=== PATIENT | male | born 1960 | race Caucasian/White ===

== ENCOUNTER 2021-07-25 10:53 | Inpatient (IN) ==
[2021-07-25] MEDS ORDERED: Naloxone 0.4 MG/ML INJ IVP PRN ×2 (11:15→19:49)
[2021-07-25] MEDS ORDERED: Ondansetron ODT 4 MG TAB.RAPDIS SL PRN ×2 (11:15→19:49)
[2021-07-25] MEDS ORDERED: Mag Hydrox/Al Hydrox/Simeth 30 ML UDC PO PRN ×2 (11:15→19:49)
[2021-07-25] MEDS ORDERED: Melatonin 3 MG TABLET PO PRN (11:15)
[2021-07-25 11:51] LABS: Hemoglobin 8.5 g/dL (12.9-16.9); Nucleated Red Blood Cells 0.1 /100 WBC (0)
[2021-07-25 11:52] LABS: Hematocrit 27.7 % (37.5-50.1); Mean Corpuscular HGB Conc 30.7 g/dL (31.6-35.5); Mean Corpuscular Hemoglobin 21.1 pg (28.0-33.3); Mean Corpuscular Volume 68.9 fL (83.0-100.0); Mean Platelet Volume 9.2 fL (9.4-12.4); Platelet Count 365 K/mcL (140-400); Red Blood Count 4.02 M/mcL (4.19-5.50); Red Cell Distribution Width 19.9 % (11.5-14.5); White Blood Count 28.1 K/mcL (4.3-11.1)
[2021-07-25 12:09] LABS: Alkaline Phosphatase 358 Units/L (34-104); Aspartate Amino Transferase 32 Units/L (13-39); BUN/Creatinine Ratio 19 (6-26); Bilirubin,Total 0.4 mg/dL (0.3-1.0); Blood Urea Nitrogen 40 mg/dL (6-20); Calcium 9.1 mg/dL (8.6-10.3); Carbon Dioxide 22 mEq/L (23-29); Chloride 104 mEq/L (98-107); Glucose 121 mg/dL (70-105); INR 1.3; Osmolality,Calculated 293 (280-300); Potassium 4.2 mEq/L (3.5-5.1); Prothrombin Time 14.9 Seconds (9.4-12.1); Sodium 136 mEq/L (136-145); eGFR For African Americans 40 (> 60); eGFR For Non-African Americans 33 (> 60)
[2021-07-25 12:18] LABS: Eosinophils # 0.3 K/mcL (0.0-0.6); Lymphocytes # 2.3 K/mcL (0.6-4.6); Neutrophils # 22.8 K/mcL (1.6-8.9)
[2021-07-25 12:21] LABS: Anisocytosis 1+ (Not Present); Microcytosis Present (Not Present); Platelet Estimate Normal (Normal); Polychromasia 1+ (Not Present)
[2021-07-25 12:34] LABS: Alanine Aminotransferase 38 Units/L (7-52); Albumin 3.2 g/dL (3.5-5.7); Albumin/Globulin Ratio 0.8 (1.1-2.2); C-Reactive Protein > 300 mg/L (Less than 10); Globulin 3.9 g/dL (2.4-3.5); Total Protein 7.1 g/dL (6.4-8.9)
[2021-07-25] MEDS ORDERED: 0.9 % Sodium Chloride 1,000 ML IVC ONE ×2 (12:51→19:49)
[2021-07-25] MEDS ORDERED: Dextrose Gel 15 GM/37.5 ML TUBE PO PRN ×4 (12:51→19:49)
[2021-07-25] MEDS ORDERED: *HR* Dextrose 50 % in Water (Syg) 50 ML SYRINGE IVP PRN ×2 (12:51→19:49)
[2021-07-25] MEDS ORDERED: D5% in Water 1,000 ML IVC PRN ×2 (12:51→19:49)
[2021-07-25] MEDS ORDERED: Vancomycin 1,250 MG/262.5 ML IV.SOLN IVPB SCH (14:00)
[2021-07-25] MEDS ORDERED: Piperacillin/Tazobactam 3.375 GM in 0.9 % Sodium Chloride Mini Bag 100 ML IVPB SCH (14:00)
[2021-07-25] MEDS ORDERED: *HR* FentaNYL (PF) 100 MCG/2 ML VIAL IVP PRN ×2 (16:11→19:49)
[2021-07-25] MEDS ORDERED: Insulin LISPRO 300 UNITS/3 ML VIAL SUBQ SCH ×2 (16:30→21:00)
[2021-07-25] MEDS ORDERED: *HR* Vasopressin 20 UNIT/ML VIAL ONE (17:32)
[2021-07-25] MEDS: 0.9 % Sodium Chloride 1,000 ML IVC SCH ×2 (17:57→18:46)
[2021-07-25] MEDS ORDERED: *HR* Heparin 5,000 UNIT/ML VIAL SQ SCH (18:00)
[2021-07-25] MEDS ORDERED: 0.9 % Sodium Chloride 1,000 ML IVC SCH (19:49)
[2021-07-25] MEDS: Insulin LISPRO 300 UNITS/3 ML VIAL SUBQ SCH (23:00)
[2021-07-25] MEDS: Piperacillin/Tazobactam 3.375 GM in 0.9 % Sodium Chloride Mini Bag 100 ML IVPB SCH (23:05)
[2021-07-26 02:56] LABS: Hematocrit 24.8 % (37.5-50.1); Hemoglobin 7.5 g/dL (12.9-16.9); Lymphocytes # 0.9 K/mcL (0.6-4.6); Mean Corpuscular HGB Conc 30.2 g/dL (31.6-35.5); Mean Corpuscular Hemoglobin 21.1 pg (28.0-33.3); Mean Corpuscular Volume 69.9 fL (83.0-100.0); Mean Platelet Volume 9.5 fL (9.4-12.4); Platelet Count 377 K/mcL (140-400); Red Blood Count 3.55 M/mcL (4.19-5.50); White Blood Count 21.9 K/mcL (4.3-11.1)
[2021-07-26 03:21] LABS: Calcium 8.4 mg/dL (8.6-10.3); Potassium 4.6 mEq/L (3.5-5.1)
[2021-07-26 03:37] LABS: Basophils # 0.4 K/mcL (0.0-0.2); Hypochromasia Present (Not Present); Monocytes # 0.4 K/mcL (0.0-1.3); Neutrophils # 20.2 K/mcL (1.6-8.9); Platelet Estimate Normal (Normal)
[2021-07-26] MEDS: *HR* Heparin 5,000 UNIT/ML VIAL SQ SCH ×2 (05:35→17:05)
[2021-07-26] MEDS: Piperacillin/Tazobactam 3.375 GM in 0.9 % Sodium Chloride Mini Bag 100 ML IVPB SCH ×3 (05:41→22:43)
[2021-07-26] MEDS: Insulin LISPRO 300 UNITS/3 ML VIAL SUBQ SCH ×4 (07:27→20:36)
[2021-07-26] MEDS: Nicotine 21 MG PATCH.TD24 TD SCH (10:21)
[2021-07-26] MEDS: Sucralfate 1 GM TABLET PO SCH ×3 (13:02→20:35)
[2021-07-26] MEDS: Vancomycin 1,250 MG/262.5 ML IV.SOLN IVPB SCH (13:03)
[2021-07-26] MEDS ORDERED: Clindamycin 600 MG/50 ML 600 MG/50 ML IV.SOLN IVPB SCH (18:34)
[2021-07-26] MEDS: Melatonin 3 MG TABLET PO PRN (20:35)
[2021-07-27] MEDS: Piperacillin/Tazobactam 3.375 GM in 0.9 % Sodium Chloride Mini Bag 100 ML IVPB SCH ×3 (05:21→22:04)
[2021-07-27] MEDS: *HR* Heparin 5,000 UNIT/ML VIAL SQ SCH ×2 (05:21→17:41)
[2021-07-27 09:06] LABS: Hematocrit 26.5 % (37.5-50.1); Hemoglobin 7.7 g/dL (12.9-16.9); Mean Corpuscular HGB Conc 29.1 g/dL (31.6-35.5); Mean Corpuscular Hemoglobin 20.5 pg (28.0-33.3); Mean Corpuscular Volume 70.7 fL (83.0-100.0); Mean Platelet Volume 9.3 fL (9.4-12.4); Platelet Count 362 K/mcL (140-400); Red Blood Count 3.75 M/mcL (4.19-5.50); Red Cell Distribution Width 20.1 % (11.5-14.5); White Blood Count 21.1 K/mcL (4.3-11.1)
[2021-07-27] MEDS: Sucralfate 1 GM TABLET PO SCH ×4 (09:07→19:58)
[2021-07-27] MEDS: Nicotine 21 MG PATCH.TD24 TD SCH (09:07)
[2021-07-27 09:24] LABS: BUN/Creatinine Ratio 22 (6-26); Blood Urea Nitrogen 30 mg/dL (6-20); Calcium 8.6 mg/dL (8.6-10.3); Carbon Dioxide 23 mEq/L (23-29); Chloride 105 mEq/L (98-107); Glucose 177 mg/dL (70-105); Osmolality,Calculated 295 (280-300); Potassium 4.3 mEq/L (3.5-5.1); Sodium 137 mEq/L (136-145); eGFR For African Americans > 60 (> 60); eGFR For Non-African Americans 54 (> 60)
[2021-07-27 09:28] LABS: Eosinophils # 0.2 K/mcL (0.0-0.6); Lymphocytes # 2.3 K/mcL (0.6-4.6); Monocytes # 0.8 K/mcL (0.0-1.3); Neutrophils # 16.7 K/mcL (1.6-8.9)
[2021-07-27 09:29] LABS: Platelet Estimate Normal (Normal)
[2021-07-27] MEDS: Insulin LISPRO 300 UNITS/3 ML VIAL SUBQ SCH ×4 (11:40→21:54)
[2021-07-27] MEDS: atenoloL 25 MG TABLET PO SCH (14:56)
[2021-07-27] MEDS ORDERED: Vancomycin 1,500 MG/265 ML IV.SOLN IVPB SCH ×2 (15:00→21:00)
[2021-07-27] MEDS: Melatonin 3 MG TABLET PO PRN (19:59)
[2021-07-27] MEDS ORDERED: *HR* HYDROmorphone (PF) 1 MG/ML SYRINGE IVP ONE (23:16)
[2021-07-28] MEDS ORDERED: Ketorolac 30 MG/ML VIAL IVP ONE ×2 (03:53→21:31)
[2021-07-28 05:50] LABS: Red Cell Distribution Width 19.9 % (11.5-14.5)
[2021-07-28 05:52] LABS: Hematocrit 26.4 % (37.5-50.1); Hemoglobin 7.9 g/dL (12.9-16.9); Mean Corpuscular HGB Conc 29.9 g/dL (31.6-35.5); Mean Corpuscular Hemoglobin 21.3 pg (28.0-33.3); Mean Corpuscular Volume 71.2 fL (83.0-100.0); Mean Platelet Volume 9.2 fL (9.4-12.4); Platelet Count 388 K/mcL (140-400); Red Blood Count 3.71 M/mcL (4.19-5.50); White Blood Count 16.6 K/mcL (4.3-11.1)
[2021-07-28 06:12] LABS: BUN/Creatinine Ratio 20 (6-26); Blood Urea Nitrogen 27 mg/dL (6-20); Calcium 8.8 mg/dL (8.6-10.3); Carbon Dioxide 25 mEq/L (23-29); Chloride 100 mEq/L (98-107); Glucose 147 mg/dL (70-105); Osmolality,Calculated 284 (280-300); Potassium 4.4 mEq/L (3.5-5.1); Sodium 133 mEq/L (136-145); eGFR For African Americans > 60 (> 60); eGFR For Non-African Americans 56 (> 60)
[2021-07-28] MEDS: Piperacillin/Tazobactam 3.375 GM in 0.9 % Sodium Chloride Mini Bag 100 ML IVPB SCH (06:27)
[2021-07-28] MEDS: *HR* Heparin 5,000 UNIT/ML VIAL SQ SCH ×2 (06:27→17:03)
[2021-07-28 06:47] LABS: Eosinophils # 0.2 K/mcL (0.0-0.6); Lymphocytes # 4.3 K/mcL (0.6-4.6); Monocytes # 0.5 K/mcL (0.0-1.3); Neutrophils # 11.6 K/mcL (1.6-8.9); Platelet Estimate Normal (Normal); Reactive Lymphocytes Present (Not Present)
[2021-07-28] MEDS: Vancomycin 1,250 MG/262.5 ML IV.SOLN IVPB SCH (07:34)
[2021-07-28] MEDS: Sucralfate 1 GM TABLET PO SCH ×4 (08:19→21:29)
[2021-07-28] MEDS: atenoloL 25 MG TABLET PO SCH (08:19)
[2021-07-28] MEDS: Insulin LISPRO 300 UNITS/3 ML VIAL SUBQ SCH ×4 (08:23→21:44)
[2021-07-28] MEDS: Nicotine 21 MG PATCH.TD24 TD SCH (08:24)
[2021-07-28] MEDS ORDERED: Acetaminophen/Butalbital/CaffeineTABLET PO ONE (14:36)
[2021-07-28] MEDS ORDERED: ceFAZolin 1,000 MG in 0.9 % Sodium Chloride 10 ML IVP SCH (16:00)
[2021-07-28] MEDS ORDERED: CeFAZolin 2,000 MG/120 ML BAG IVPB SCH ×2 (16:00→17:00)
[2021-07-28] MEDS: metroNIDAZOLE 500 MG TABLET PO SCH ×2 (18:40→21:43)
[2021-07-28] MEDS: tiZANidine 4 MG TABLET PO PRN (18:40)
[2021-07-28] MEDS: Melatonin 3 MG TABLET PO PRN (21:29)
[2021-07-28] MEDS: 0.9 % Sodium Chloride 1,000 ML IVC SCH (21:44)
[2021-07-29] MEDS: tiZANidine 4 MG TABLET PO PRN ×2 (01:47→20:25)
[2021-07-29] MEDS: CeFAZolin 2,000 MG/120 ML BAG IVPB SCH ×3 (02:03→17:06)
[2021-07-29 02:12] LABS: Basophils # 0.1 K/mcL (0.0-0.2); Basophils % 0.6 %; Eosinophils # 0.3 K/mcL (0.0-0.6); Eosinophils % 1.6 %; Hematocrit 26.7 % (37.5-50.1); Hemoglobin 7.9 g/dL (12.9-16.9); Immature Granulocytes % 10.6 % (0-4); Lymphocytes # 2.6 K/mcL (0.6-4.6); Lymphocytes % 15.4 %; Mean Corpuscular HGB Conc 29.6 g/dL (31.6-35.5); Mean Corpuscular Hemoglobin 20.7 pg (28.0-33.3); Mean Corpuscular Volume 70.1 fL (83.0-100.0); Mean Platelet Volume 8.8 fL (9.4-12.4); Monocytes # 1.6 K/mcL (0.0-1.3); Monocytes % 9.2 %; Neutrophils # 10.7 K/mcL (1.6-8.9); Platelet Count 394 K/mcL (140-400); Red Blood Count 3.81 M/mcL (4.19-5.50); Red Cell Distribution Width 19.3 % (11.5-14.5); Segmented Neutrophils % 62.6 %; White Blood Count 17.1 K/mcL (4.3-11.1)
[2021-07-29 02:18] LABS: Platelet Estimate Normal (Normal)
[2021-07-29 02:27] LABS: BUN/Creatinine Ratio 20 (6-26); Blood Urea Nitrogen 23 mg/dL (6-20); Calcium 8.7 mg/dL (8.6-10.3); Carbon Dioxide 24 mEq/L (23-29); Chloride 102 mEq/L (98-107); Glucose 108 mg/dL (70-105); Osmolality,Calculated 282 (280-300); Potassium 4.4 mEq/L (3.5-5.1); Sodium 134 mEq/L (136-145); eGFR For African Americans > 60 (> 60); eGFR For Non-African Americans > 60 (> 60)
[2021-07-29] MEDS: *HR* Heparin 5,000 UNIT/ML VIAL SQ SCH ×2 (05:48→17:07)
[2021-07-29] MEDS: Insulin LISPRO 300 UNITS/3 ML VIAL SUBQ SCH ×4 (09:17→21:56)
[2021-07-29] MEDS: Sucralfate 1 GM TABLET PO SCH ×4 (09:21→20:08)
[2021-07-29] MEDS: metroNIDAZOLE 500 MG TABLET PO SCH ×3 (09:21→20:07)
[2021-07-29] MEDS: atenoloL 25 MG TABLET PO SCH (09:21)
[2021-07-29] MEDS: Nicotine 21 MG PATCH.TD24 TD SCH (09:22)
[2021-07-29] MEDS: Acetaminophen/Butalbital/CaffeineTABLET PO PRN (10:05)
[2021-07-29] MEDS ORDERED: Gadolinium Contrast Agent (WT Based) IV PRN (11:21)
[2021-07-29] MEDS ORDERED: *HR* LORazepam 2 MG/ML VIAL IVP ONE (11:51)
[2021-07-29] MEDS: 0.9 % Sodium Chloride 1,000 ML IVC SCH (13:26)
[2021-07-30] MEDS: CeFAZolin 2,000 MG/120 ML BAG IVPB SCH ×3 (01:15→17:12)
[2021-07-30] MEDS: 0.9 % Sodium Chloride 1,000 ML IVC SCH ×2 (03:59→17:59)
[2021-07-30 04:34] LABS: Mean Corpuscular Volume 71.1 fL (83.0-100.0)
[2021-07-30 04:36] LABS: Basophils # 0.1 K/mcL (0.0-0.2); Basophils % 0.4 %; Eosinophils # 0.3 K/mcL (0.0-0.6); Eosinophils % 1.6 %; Hematocrit 27.1 % (37.5-50.1); Immature Granulocytes % 9.2 % (0-4); Lymphocytes # 2.1 K/mcL (0.6-4.6); Lymphocytes % 11.8 %; Mean Corpuscular HGB Conc 29.5 g/dL (31.6-35.5); Monocytes # 1.7 K/mcL (0.0-1.3); Monocytes % 9.5 %; Neutrophils # 12.1 K/mcL (1.6-8.9); Platelet Count 398 K/mcL (140-400); Red Blood Count 3.81 M/mcL (4.19-5.50); Segmented Neutrophils % 67.5 %; White Blood Count 17.9 K/mcL (4.3-11.1)
[2021-07-30 04:52] LABS: Platelet Estimate Normal (Normal)
[2021-07-30 04:55] LABS: BUN/Creatinine Ratio 17 (6-26); Blood Urea Nitrogen 21 mg/dL (6-20); Calcium 8.7 mg/dL (8.6-10.3); Carbon Dioxide 25 mEq/L (23-29); Chloride 99 mEq/L (98-107); Glucose 100 mg/dL (70-105); Osmolality,Calculated 277 (280-300); Sodium 132 mEq/L (136-145); eGFR For African Americans > 60 (> 60); eGFR For Non-African Americans > 60 (> 60)
[2021-07-30] MEDS: *HR* Heparin 5,000 UNIT/ML VIAL SQ SCH ×2 (07:34→17:12)
[2021-07-30] MEDS: Acetaminophen/Butalbital/CaffeineTABLET PO PRN ×2 (07:49→14:06)
[2021-07-30] MEDS: Insulin LISPRO 300 UNITS/3 ML VIAL SUBQ SCH ×4 (07:50→21:32)
[2021-07-30] MEDS: Sucralfate 1 GM TABLET PO SCH ×4 (10:03→21:34)
[2021-07-30] MEDS: Nicotine 21 MG PATCH.TD24 TD SCH (10:03)
[2021-07-30] MEDS: metroNIDAZOLE 500 MG TABLET PO SCH ×3 (10:03→21:36)
[2021-07-30] MEDS: atenoloL 25 MG TABLET PO SCH (10:03)
[2021-07-30] MEDS: Melatonin 3 MG TABLET PO PRN (23:22)
[2021-07-31] MEDS: CeFAZolin 2,000 MG/120 ML BAG IVPB SCH ×3 (01:52→17:17)
[2021-07-31] MEDS: 0.9 % Sodium Chloride 1,000 ML IVC SCH (05:57)
[2021-07-31] MEDS: *HR* Heparin 5,000 UNIT/ML VIAL SQ SCH ×2 (05:57→17:21)
[2021-07-31] MEDS: tiZANidine 4 MG TABLET PO PRN (05:59)
[2021-07-31 08:29] LABS: Hematocrit 27.1 % (37.5-50.1); Hemoglobin 8.2 g/dL (12.9-16.9); Mean Corpuscular HGB Conc 30.3 g/dL (31.6-35.5); Mean Corpuscular Volume 69.5 fL (83.0-100.0); Mean Platelet Volume 8.7 fL (9.4-12.4); Platelet Count 443 K/mcL (140-400); White Blood Count 13.4 K/mcL (4.3-11.1)
[2021-07-31 08:48] LABS: BUN/Creatinine Ratio 15 (6-26); Blood Urea Nitrogen 15 mg/dL (6-20); Calcium 8.7 mg/dL (8.6-10.3); Carbon Dioxide 25 mEq/L (23-29); Chloride 102 mEq/L (98-107); Glucose 116 mg/dL (70-105); Osmolality,Calculated 278 (280-300); Potassium 4.2 mEq/L (3.5-5.1); Sodium 133 mEq/L (136-145); eGFR For African Americans > 60 (> 60); eGFR For Non-African Americans > 60 (> 60)
[2021-07-31] MEDS: Insulin LISPRO 300 UNITS/3 ML VIAL SUBQ SCH ×3 (09:03→17:07)
[2021-07-31] MEDS: Sucralfate 1 GM TABLET PO SCH ×4 (09:08→20:04)
[2021-07-31] MEDS: metroNIDAZOLE 500 MG TABLET PO SCH ×3 (09:08→20:04)
[2021-07-31] MEDS: atenoloL 25 MG TABLET PO SCH (09:08)
[2021-07-31] MEDS: Nicotine 21 MG PATCH.TD24 TD SCH ×2 (09:08→10:42)
[2021-07-31 09:13] LABS: Eosinophils # 0.5 K/mcL (0.0-0.6); Lymphocytes # 2.1 K/mcL (0.6-4.6); Monocytes # 0.8 K/mcL (0.0-1.3); Neutrophils # 9.3 K/mcL (1.6-8.9)
[2021-07-31 09:14] LABS: Anisocytosis 1+ (Not Present); Hypochromasia Present (Not Present); Microcytosis Present (Not Present)
[2021-07-31] MEDS: Acetaminophen/Butalbital/CaffeineTABLET PO PRN ×2 (13:09→22:29)
[2021-08-01] MEDS: Insulin LISPRO 300 UNITS/3 ML VIAL SUBQ SCH ×5 (00:55→20:33)
[2021-08-01] MEDS: CeFAZolin 2,000 MG/120 ML BAG IVPB SCH ×3 (02:50→18:34)
[2021-08-01 05:28] LABS: Basophils % 0.3 %; Eosinophils # 0.3 K/mcL (0.0-0.6); Eosinophils % 2.3 %; Hematocrit 24.8 % (37.5-50.1); Hemoglobin 7.3 g/dL (12.9-16.9); Immature Granulocytes % 5.9 % (0-4); Lymphocytes # 2.1 K/mcL (0.6-4.6); Lymphocytes % 17.2 %; Mean Corpuscular HGB Conc 29.4 g/dL (31.6-35.5); Mean Corpuscular Hemoglobin 20.8 pg (28.0-33.3); Mean Corpuscular Volume 70.7 fL (83.0-100.0); Mean Platelet Volume 8.9 fL (9.4-12.4); Monocytes # 1.5 K/mcL (0.0-1.3); Monocytes % 11.7 %; Platelet Count 424 K/mcL (140-400); Red Blood Count 3.51 M/mcL (4.19-5.50); Red Cell Distribution Width 19.2 % (11.5-14.5); Segmented Neutrophils % 62.6 %; White Blood Count 12.4 K/mcL (4.3-11.1)
[2021-08-01] MEDS: 0.9 % Sodium Chloride 1,000 ML IVC SCH ×2 (05:30→05:46)
[2021-08-01 05:32] LABS: Neutrophils # 7.8 K/mcL (1.6-8.9)
[2021-08-01] MEDS: *HR* Heparin 5,000 UNIT/ML VIAL SQ SCH ×2 (05:45→18:31)
[2021-08-01] MEDS: Acetaminophen/Butalbital/CaffeineTABLET PO PRN ×3 (05:45→18:31)
[2021-08-01 05:46] LABS: BUN/Creatinine Ratio 15 (6-26); Blood Urea Nitrogen 21 mg/dL (6-20); Calcium 8.8 mg/dL (8.6-10.3); Carbon Dioxide 24 mEq/L (23-29); Chloride 104 mEq/L (98-107); Glucose 126 mg/dL (70-105); Osmolality,Calculated 283 (280-300); Potassium 4.5 mEq/L (3.5-5.1); Sodium 134 mEq/L (136-145); eGFR For African Americans > 60 (> 60); eGFR For Non-African Americans 54 (> 60)
[2021-08-01 05:56] LABS: Anisocytosis 1+ (Not Present)
[2021-08-01] MEDS: metroNIDAZOLE 500 MG TABLET PO SCH ×3 (08:08→20:33)
[2021-08-01] MEDS: Sucralfate 1 GM TABLET PO SCH ×4 (08:08→20:33)
[2021-08-01] MEDS: atenoloL 25 MG TABLET PO SCH (08:08)
[2021-08-01] MEDS: Nicotine 21 MG PATCH.TD24 TD SCH (08:09)
[2021-08-02] MEDS: Acetaminophen/Butalbital/CaffeineTABLET PO PRN ×3 (00:59→15:42)
[2021-08-02] MEDS: CeFAZolin 2,000 MG/120 ML BAG IVPB SCH ×3 (03:30→18:44)
[2021-08-02] MEDS: *HR* Heparin 5,000 UNIT/ML VIAL SQ SCH ×2 (05:16→18:49)
[2021-08-02 07:03] LABS: Eosinophils % 2.5 %; Red Cell Distribution Width 19.3 % (11.5-14.5)
[2021-08-02 07:04] LABS: Basophils # 0.1 K/mcL (0.0-0.2); Basophils % 0.5 %; Eosinophils # 0.2 K/mcL (0.0-0.6); Hematocrit 26.9 % (37.5-50.1); Hemoglobin 7.9 g/dL (12.9-16.9); Immature Granulocytes % 4.4 % (0-4); Lymphocytes % 20.3 %; Mean Corpuscular HGB Conc 29.4 g/dL (31.6-35.5); Mean Corpuscular Hemoglobin 21.1 pg (28.0-33.3); Mean Corpuscular Volume 71.9 fL (83.0-100.0); Monocytes # 1.2 K/mcL (0.0-1.3); Monocytes % 12.6 %; Platelet Count 472 K/mcL (140-400); Red Blood Count 3.74 M/mcL (4.19-5.50); Segmented Neutrophils % 59.7 %; White Blood Count 9.6 K/mcL (4.3-11.1)
[2021-08-02 07:06] LABS: Neutrophils # 5.7 K/mcL (1.6-8.9)
[2021-08-02 07:47] LABS: BUN/Creatinine Ratio 14 (6-26); Blood Urea Nitrogen 16 mg/dL (6-20); Calcium 8.6 mg/dL (8.6-10.3); Carbon Dioxide 23 mEq/L (23-29); Chloride 102 mEq/L (98-107); Glucose 104 mg/dL (70-105); Osmolality,Calculated 275 (280-300); Potassium 4.1 mEq/L (3.5-5.1); Sodium 132 mEq/L (136-145); eGFR For African Americans > 60 (> 60); eGFR For Non-African Americans > 60 (> 60)
[2021-08-02] MEDS: Insulin LISPRO 300 UNITS/3 ML VIAL SUBQ SCH ×4 (09:27→20:28)
[2021-08-02] MEDS: Sucralfate 1 GM TABLET PO SCH ×4 (09:28→20:27)
[2021-08-02] MEDS: metroNIDAZOLE 500 MG TABLET PO SCH ×3 (09:28→20:27)
[2021-08-02] MEDS: atenoloL 25 MG TABLET PO SCH (09:28)
[2021-08-02] MEDS: Nicotine 21 MG PATCH.TD24 TD SCH (09:29)
[2021-08-02] MEDS: lisinopriL 10 MG TABLET PO SCH (18:48)
[2021-08-03] MEDS: CeFAZolin 2,000 MG/120 ML BAG IVPB SCH ×2 (01:40→10:32)
[2021-08-03] MEDS: tiZANidine 4 MG TABLET PO PRN (06:33)
[2021-08-03] MEDS: *HR* Heparin 5,000 UNIT/ML VIAL SQ SCH (06:33)
[2021-08-03] MEDS: metroNIDAZOLE 500 MG TABLET PO SCH (07:36)
[2021-08-03] MEDS: Sucralfate 1 GM TABLET PO SCH (07:36)
[2021-08-03] MEDS: atenoloL 25 MG TABLET PO SCH (07:36)
[2021-08-03] MEDS: Acetaminophen/Butalbital/CaffeineTABLET PO PRN ×2 (07:36→13:37)
[2021-08-03] MEDS: Nicotine 21 MG PATCH.TD24 TD SCH (07:37)
[2021-08-03] MEDS: lisinopriL 10 MG TABLET PO SCH (07:37)
[2021-08-03] MEDS: Insulin LISPRO 300 UNITS/3 ML VIAL SUBQ SCH (07:43)
[2021-08-03 11:36] VITALS: BP 131/76; PULSE 67; TEMP 97.8; O2SAT 99
== END 2021-08-03 15:07 | disposition home health service (06) | DRG 622 ==
LOC: 3ANU → SUATTDRO 07-26 13:20
PROVIDERS: ADMIT Family Medicine; ATTEND Internal Medicine

== ENCOUNTER 2022-02-01 13:23 | Inpatient (IN) ==
[2022-02-01] MEDS ORDERED: Ondansetron 4 MG/2 ML VIAL IVP ONE (13:41)
[2022-02-01] MEDS ORDERED: 0.9 % Sodium Chloride 1,000 ML IVC ONE ×2 (13:41→14:39)
[2022-02-01 14:26] LABS: Basophils # 0.1 K/mcL (0.0-0.2); Basophils % 0.6 %; Eosinophils # 0.4 K/mcL (0.0-0.6); Hematocrit 33.4 % (37.5-50.1); Hemoglobin 9.9 g/dL (12.9-16.9); Immature Granulocytes % 3.4 % (0-4); Lymphocytes # 2.5 K/mcL (0.6-4.6); Lymphocytes % 13.7 %; Mean Corpuscular HGB Conc 29.6 g/dL (31.6-35.5); Mean Corpuscular Hemoglobin 21.5 pg (28.0-33.3); Mean Corpuscular Volume 72.6 fL (83.0-100.0); Mean Platelet Volume 8.7 fL (9.4-12.4); Monocytes # 1.2 K/mcL (0.0-1.3); Monocytes % 6.5 %; Neutrophils # 13.5 K/mcL (1.6-8.9); Platelet Count 637 K/mcL (140-400); Red Cell Distribution Width 19.2 % (11.5-14.5); Segmented Neutrophils % 73.8 %; White Blood Count 18.3 K/mcL (4.3-11.1)
[2022-02-01 14:32] LABS: Calcium 9.8 mg/dL (8.6-10.3); Potassium 4.8 mEq/L (3.5-5.1)
[2022-02-01] MEDS ORDERED: Piperacillin/Tazobactam 3.375 GM in 0.9 % Sodium Chloride Mini Bag 100 ML IVPB ONE (15:29)
[2022-02-01] MEDS ORDERED: Naloxone 0.4 MG/ML INJ IVP PRN (15:57)
[2022-02-01] MEDS ORDERED: *HR* Dextrose 50 % in Water (Syg) 50 ML SYRINGE IVP PRN (16:36)
[2022-02-01] MEDS ORDERED: Dextrose Gel 15 GM/37.5 ML TUBE PO PRN ×2 (16:36)
[2022-02-01] MEDS ORDERED: D5% in Water 1,000 ML IVC PRN (16:36)
[2022-02-01] MEDS ORDERED: Insulin LISPRO 300 UNITS/3 ML VIAL SUBQ SCH ×2 (16:45→21:00)
[2022-02-01] MEDS: Cefepime HCl 1,000 MG in 0.9 % Sodium Chloride 10 ML IVP SCH (17:25)
[2022-02-01] MEDS: 0.9 % Sodium Chloride 1,000 ML IVC SCH (17:30)
[2022-02-01] MEDS: DAPTOmycin 500 MG in 0.9 % Sodium Chloride 100 ML IVPB SCH (17:42)
[2022-02-01] MEDS: *HR* OxyCODONE/APAP 10/325 TABLET PO PRN (21:59)
[2022-02-02] MEDS: Insulin LISPRO 300 UNITS/3 ML VIAL SUBQ SCH ×4 (00:30→19:35)
[2022-02-02] MEDS: 0.9 % Sodium Chloride 1,000 ML IVC SCH ×3 (00:30→20:01)
[2022-02-02 05:01] LABS: Lymphocytes % 14.3 %; Monocytes % 10.1 %
[2022-02-02 05:03] LABS: Basophils # 0.1 K/mcL (0.0-0.2); Basophils % 0.8 %; Eosinophils # 0.3 K/mcL (0.0-0.6); Eosinophils % 2.5 %; Hematocrit 32.4 % (37.5-50.1); Hemoglobin 9.2 g/dL (12.9-16.9); Immature Granulocytes % 2.8 % (0-4); Lymphocytes # 1.9 K/mcL (0.6-4.6); Mean Corpuscular HGB Conc 28.4 g/dL (31.6-35.5); Mean Corpuscular Hemoglobin 21.2 pg (28.0-33.3); Mean Corpuscular Volume 74.7 fL (83.0-100.0); Mean Platelet Volume 8.5 fL (9.4-12.4); Monocytes # 1.3 K/mcL (0.0-1.3); Neutrophils # 9.2 K/mcL (1.6-8.9); Platelet Count 509 K/mcL (140-400); Red Blood Count 4.34 M/mcL (4.19-5.50); Red Cell Distribution Width 18.9 % (11.5-14.5); Segmented Neutrophils % 69.5 %; White Blood Count 13.2 K/mcL (4.3-11.1)
[2022-02-02 05:16] LABS: Albumin 3.1 g/dL (3.5-5.7); Albumin/Globulin Ratio 0.7 (1.1-2.2); Bilirubin,Total 0.3 mg/dL (0.3-1.0); Calcium 8.8 mg/dL (8.6-10.3); Globulin 4.2 g/dL (2.4-3.5); Phosphorous 3.7 mg/dL (2.7-4.5); Potassium 4.7 mEq/L (3.5-5.1); Total Protein 7.3 g/dL (6.4-8.9)
[2022-02-02 05:39] LABS: Estimated Average Glucose 140 mg/dl; Hemoglobin A1C 6.5 %
[2022-02-02] MEDS: Cefepime HCl 1,000 MG in 0.9 % Sodium Chloride 10 ML IVP SCH (06:22)
[2022-02-02] MEDS: *HR* OxyCODONE/APAP 10/325 TABLET PO PRN ×2 (09:54→20:02)
[2022-02-02] MEDS ORDERED: Acetaminophen IV 1,000 MG/100 ML BAG IVPB ONE (11:25)
[2022-02-02] MEDS ORDERED: Famotidine 20 MG/2 ML VIAL IVP ONE (11:25)
[2022-02-02] MEDS: atenoloL 25 MG TABLET PO SCH (11:33)
[2022-02-02] MEDS: Morphine Sulfate 2 MG/ML SYRINGE IVP PRN ×2 (11:34→21:19)
[2022-02-02] MEDS ORDERED: Lidocaine -MPF 2% 5 ML VIAL ONE (15:34)
[2022-02-02] MEDS ORDERED: Ondansetron 4 MG/2 ML VIAL ONE (15:34)
[2022-02-02] MEDS ORDERED: *HR* Midazolam HCl 2 MG/2 ML VIAL ONE (15:47)
[2022-02-02] MEDS ORDERED: *HR* FentaNYL (PF) 100 MCG/2 ML VIAL ONE (15:47)
[2022-02-02] MEDS: DAPTOmycin 500 MG in 0.9 % Sodium Chloride 100 ML IVPB SCH (18:40)
[2022-02-02] MEDS: Cefepime HCl 2,000 MG in 0.9 % Sodium Chloride Mini Bag 100 ML IVPB SCH (20:01)
[2022-02-02] MEDS: Loratadine 10 MG TABLET PO SCH (20:02)
[2022-02-02 21:05] LABS: Hematocrit 29.6 % (37.5-50.1); Hemoglobin 8.6 g/dL (12.9-16.9)
[2022-02-03] MEDS: Insulin LISPRO 300 UNITS/3 ML VIAL SUBQ SCH ×5 (00:49→20:37)
[2022-02-03] MEDS: Morphine Sulfate 2 MG/ML SYRINGE IVP PRN ×5 (01:31→20:10)
[2022-02-03] MEDS: *HR* OxyCODONE/APAP 10/325 TABLET PO PRN ×5 (02:25→23:20)
[2022-02-03 04:28] LABS: Basophils % 0.2 %; Eosinophils % 0.2 %; Hemoglobin 8.2 g/dL (12.9-16.9); Lymphocytes # 0.8 K/mcL (0.6-4.6); Lymphocytes % 9.3 %; Mean Corpuscular HGB Conc 29.3 g/dL (31.6-35.5); Mean Corpuscular Hemoglobin 21.1 pg (28.0-33.3); Mean Corpuscular Volume 72.2 fL (83.0-100.0); Mean Platelet Volume 8.3 fL (9.4-12.4); Monocytes # 0.7 K/mcL (0.0-1.3); Monocytes % 7.6 %; Neutrophils # 7.2 K/mcL (1.6-8.9); Platelet Count 473 K/mcL (140-400); Red Blood Count 3.88 M/mcL (4.19-5.50); Red Cell Distribution Width 18.7 % (11.5-14.5); Segmented Neutrophils % 80.7 %; White Blood Count 8.9 K/mcL (4.3-11.1)
[2022-02-03] MEDS: 0.9 % Sodium Chloride 1,000 ML IVC SCH (04:37)
[2022-02-03 04:51] LABS: Albumin 3.1 g/dL (3.5-5.7); Albumin/Globulin Ratio 0.7 (1.1-2.2); Bilirubin,Total 0.3 mg/dL (0.3-1.0); Calcium 8.8 mg/dL (8.6-10.3); Globulin 4.2 g/dL (2.4-3.5); Potassium 4.6 mEq/L (3.5-5.1); Total Protein 7.3 g/dL (6.4-8.9)
[2022-02-03] MEDS: Cefepime HCl 2,000 MG in 0.9 % Sodium Chloride Mini Bag 100 ML IVPB SCH ×3 (05:58→23:20)
[2022-02-03] MEDS: Ondansetron 4 MG/2 ML VIAL IVP PRN (07:31)
[2022-02-03] MEDS: atenoloL 25 MG TABLET PO SCH (07:31)
[2022-02-03] MEDS: Loratadine 10 MG TABLET PO SCH ×2 (07:31→20:09)
[2022-02-03] MEDS: Nicotine 21 MG PATCH.TD24 TD SCH (07:44)
[2022-02-03] MEDS: Aspirin Enteric Coated 81 MG Tablet PO SCH (07:44)
[2022-02-03] MEDS ORDERED: atenoloL 25 MG TABLET PO SCH (09:00)
[2022-02-03] MEDS ORDERED: 0.9 % Sodium Chloride 1,000 ML IVC SCH (13:15)
[2022-02-03] MEDS: DAPTOmycin 500 MG in 0.9 % Sodium Chloride 100 ML IVPB SCH (16:22)
[2022-02-03] MEDS: Acetaminophen 325 MG TABLET PO PRN (16:50)
[2022-02-04] MEDS: Morphine Sulfate 2 MG/ML SYRINGE IVP PRN ×6 (00:19→21:21)
[2022-02-04] MEDS: Ondansetron 4 MG/2 ML VIAL IVP PRN (03:26)
[2022-02-04] MEDS: *HR* OxyCODONE/APAP 10/325 TABLET PO PRN ×3 (06:01→18:13)
[2022-02-04] MEDS: Insulin LISPRO 300 UNITS/3 ML VIAL SUBQ SCH ×4 (08:06→21:22)
[2022-02-04] MEDS: atenoloL 25 MG TABLET PO SCH (08:15)
[2022-02-04] MEDS: Aspirin Enteric Coated 81 MG Tablet PO SCH (08:16)
[2022-02-04] MEDS: Loratadine 10 MG TABLET PO SCH ×2 (08:16→21:21)
[2022-02-04] MEDS: Cefepime HCl 2,000 MG in 0.9 % Sodium Chloride Mini Bag 100 ML IVPB SCH ×2 (08:16→15:45)
[2022-02-04] MEDS: Nicotine 21 MG PATCH.TD24 TD SCH (08:17)
[2022-02-04 15:51] LABS: Red Blood Count 3.62 M/mcL (4.19-5.50); Red Cell Distribution Width 18.7 % (11.5-14.5)
[2022-02-04 15:52] LABS: Basophils # 0.1 K/mcL (0.0-0.2); Basophils % 1.1 %; Eosinophils # 0.5 K/mcL (0.0-0.6); Eosinophils % 6.9 %; Hematocrit 26.3 % (37.5-50.1); Hemoglobin 7.5 g/dL (12.9-16.9); Lymphocytes # 1.8 K/mcL (0.6-4.6); Lymphocytes % 23.9 %; Mean Corpuscular HGB Conc 28.5 g/dL (31.6-35.5); Mean Corpuscular Hemoglobin 20.7 pg (28.0-33.3); Mean Corpuscular Volume 72.7 fL (83.0-100.0); Mean Platelet Volume 8.2 fL (9.4-12.4); Monocytes # 0.8 K/mcL (0.0-1.3); Monocytes % 10.1 %; Platelet Count 400 K/mcL (140-400); White Blood Count 7.4 K/mcL (4.3-11.1)
[2022-02-04 15:55] LABS: Neutrophils # 4.1 K/mcL (1.6-8.9)
[2022-02-04 16:01] LABS: Albumin 2.9 g/dL (3.5-5.7); Albumin/Globulin Ratio 0.7 (1.1-2.2); Bilirubin,Total 0.2 mg/dL (0.3-1.0); Calcium 8.9 mg/dL (8.6-10.3); Globulin 3.9 g/dL (2.4-3.5); Potassium 4.4 mEq/L (3.5-5.1); Total Protein 6.8 g/dL (6.4-8.9)
[2022-02-04 16:33] LABS: Anisocytosis 1+ (Not Present); Hypochromasia Present (Not Present); Microcytosis Present (Not Present); Platelet Estimate Normal (Normal)
[2022-02-04] MEDS: DAPTOmycin 500 MG in 0.9 % Sodium Chloride 100 ML IVPB SCH (17:04)
[2022-02-05] MEDS: Cefepime HCl 2,000 MG in 0.9 % Sodium Chloride Mini Bag 100 ML IVPB SCH ×2 (00:02→07:18)
[2022-02-05] MEDS: *HR* OxyCODONE/APAP 10/325 TABLET PO PRN ×4 (00:15→21:20)
[2022-02-05] MEDS: Ondansetron 4 MG/2 ML VIAL IVP PRN (01:21)
[2022-02-05] MEDS: Morphine Sulfate 2 MG/ML SYRINGE IVP PRN ×6 (01:21→23:51)
[2022-02-05 06:36] LABS: Hematocrit 28.9 % (37.5-50.1); Mean Platelet Volume 8.2 fL (9.4-12.4); Monocytes % 9.3 %
[2022-02-05 06:37] LABS: Basophils # 0.2 K/mcL (0.0-0.2); Eosinophils # 0.5 K/mcL (0.0-0.6); Eosinophils % 6.1 %; Hemoglobin 8.2 g/dL (12.9-16.9); Immature Granulocytes % 3.7 % (0-4); Lymphocytes # 2.1 K/mcL (0.6-4.6); Lymphocytes % 27.8 %; Mean Corpuscular HGB Conc 28.4 g/dL (31.6-35.5); Mean Corpuscular Hemoglobin 20.6 pg (28.0-33.3); Mean Corpuscular Volume 72.6 fL (83.0-100.0); Monocytes # 0.7 K/mcL (0.0-1.3); Neutrophils # 3.8 K/mcL (1.6-8.9); Platelet Count 456 K/mcL (140-400); Red Blood Count 3.98 M/mcL (4.19-5.50); Red Cell Distribution Width 18.7 % (11.5-14.5); Segmented Neutrophils % 51.1 %; White Blood Count 7.4 K/mcL (4.3-11.1)
[2022-02-05 06:54] LABS: Anisocytosis 1+ (Not Present); Hypochromasia Present (Not Present)
[2022-02-05 06:55] LABS: Albumin 3.2 g/dL (3.5-5.7); Albumin/Globulin Ratio 0.8 (1.1-2.2); Bilirubin,Total 0.2 mg/dL (0.3-1.0); Calcium 9.2 mg/dL (8.6-10.3); Globulin 4.2 g/dL (2.4-3.5); Platelet Estimate Normal (Normal); Potassium 4.4 mEq/L (3.5-5.1); Stomatocytes 1+ (Not Present); Total Protein 7.4 g/dL (6.4-8.9)
[2022-02-05] MEDS: Loratadine 10 MG TABLET PO SCH ×2 (07:18→21:20)
[2022-02-05] MEDS: Aspirin Enteric Coated 81 MG Tablet PO SCH (07:18)
[2022-02-05] MEDS: atenoloL 25 MG TABLET PO SCH (07:19)
[2022-02-05] MEDS: Nicotine 21 MG PATCH.TD24 TD SCH (08:12)
[2022-02-05] MEDS: Insulin LISPRO 300 UNITS/3 ML VIAL SUBQ SCH ×4 (08:12→21:27)
[2022-02-05] MEDS: Acetaminophen 325 MG TABLET PO PRN (09:07)
[2022-02-05] MEDS: metroNIDAZOLE 500 MG TABLET PO SCH ×2 (13:46→21:21)
[2022-02-05] MEDS: ceFAZolin 2,000 MG in 0.9 % Sodium Chloride 100 ML IVPB SCH ×2 (15:31→23:51)
[2022-02-06] MEDS: *HR* OxyCODONE/APAP 10/325 TABLET PO PRN ×3 (03:37→20:31)
[2022-02-06] MEDS: Acetaminophen 325 MG TABLET PO PRN ×2 (04:53→23:17)
[2022-02-06] MEDS: Morphine Sulfate 2 MG/ML SYRINGE IVP PRN ×5 (04:54→21:27)
[2022-02-06] MEDS: Ondansetron 4 MG/2 ML VIAL IVP PRN ×2 (04:54→23:16)
[2022-02-06] MEDS: Insulin LISPRO 300 UNITS/3 ML VIAL SUBQ SCH ×4 (08:14→20:27)
[2022-02-06] MEDS: Nicotine 21 MG PATCH.TD24 TD SCH (08:24)
[2022-02-06] MEDS: Aspirin Enteric Coated 81 MG Tablet PO SCH (08:25)
[2022-02-06] MEDS: metroNIDAZOLE 500 MG TABLET PO SCH ×3 (08:26→20:25)
[2022-02-06] MEDS: atenoloL 25 MG TABLET PO SCH (08:26)
[2022-02-06] MEDS: Loratadine 10 MG TABLET PO SCH ×2 (08:26→20:26)
[2022-02-06] MEDS: ceFAZolin 2,000 MG in 0.9 % Sodium Chloride 100 ML IVPB SCH ×3 (08:34→23:17)
[2022-02-06 10:52] LABS: Basophils # 0.1 K/mcL (0.0-0.2); Basophils % 1.4 %; Eosinophils # 0.4 K/mcL (0.0-0.6); Eosinophils % 5.3 %; Hematocrit 28.5 % (37.5-50.1); Hemoglobin 8.5 g/dL (12.9-16.9); Immature Granulocytes % 4.1 % (0-4); Lymphocytes # 1.7 K/mcL (0.6-4.6); Lymphocytes % 23.5 %; Mean Corpuscular HGB Conc 29.8 g/dL (31.6-35.5); Mean Corpuscular Hemoglobin 21.5 pg (28.0-33.3); Mean Platelet Volume 8.1 fL (9.4-12.4); Monocytes # 0.7 K/mcL (0.0-1.3); Monocytes % 9.5 %; Platelet Count 404 K/mcL (140-400); Red Blood Count 3.96 M/mcL (4.19-5.50); Red Cell Distribution Width 18.6 % (11.5-14.5); Segmented Neutrophils % 56.2 %; White Blood Count 7.2 K/mcL (4.3-11.1)
[2022-02-06 11:12] LABS: Albumin 3.4 g/dL (3.5-5.7); Albumin/Globulin Ratio 0.9 (1.1-2.2); Bilirubin,Total 0.2 mg/dL (0.3-1.0); Calcium 9.5 mg/dL (8.6-10.3); Total Protein 7.4 g/dL (6.4-8.9)
[2022-02-07] MEDS: Morphine Sulfate 2 MG/ML SYRINGE IVP PRN ×4 (01:54→21:27)
[2022-02-07] MEDS: *HR* OxyCODONE/APAP 10/325 TABLET PO PRN ×3 (05:38→22:45)
[2022-02-07] MEDS: Acetaminophen 325 MG TABLET PO PRN ×2 (05:39→21:27)
[2022-02-07] MEDS: Insulin LISPRO 300 UNITS/3 ML VIAL SUBQ SCH ×4 (07:47→21:28)
[2022-02-07] MEDS: metroNIDAZOLE 500 MG TABLET PO SCH ×3 (07:47→21:27)
[2022-02-07] MEDS: Loratadine 10 MG TABLET PO SCH ×2 (07:48→21:27)
[2022-02-07] MEDS: Nicotine 21 MG PATCH.TD24 TD SCH (07:48)
[2022-02-07] MEDS: atenoloL 25 MG TABLET PO SCH (07:48)
[2022-02-07] MEDS: Aspirin Enteric Coated 81 MG Tablet PO SCH (07:48)
[2022-02-07] MEDS: ceFAZolin 2,000 MG in 0.9 % Sodium Chloride 100 ML IVPB SCH ×3 (07:48→23:31)
[2022-02-08] MEDS: Morphine Sulfate 2 MG/ML SYRINGE IVP PRN ×2 (04:11→10:14)
[2022-02-08] MEDS: *HR* OxyCODONE/APAP 10/325 TABLET PO PRN ×2 (05:22→11:32)
[2022-02-08] MEDS: atenoloL 25 MG TABLET PO SCH (07:45)
[2022-02-08] MEDS: Aspirin Enteric Coated 81 MG Tablet PO SCH (07:45)
[2022-02-08] MEDS: Loratadine 10 MG TABLET PO SCH (07:45)
[2022-02-08] MEDS: Nicotine 21 MG PATCH.TD24 TD SCH (07:45)
[2022-02-08] MEDS: metroNIDAZOLE 500 MG TABLET PO SCH (07:45)
[2022-02-08] MEDS: ceFAZolin 2,000 MG in 0.9 % Sodium Chloride 100 ML IVPB SCH (07:52)
[2022-02-08] MEDS: Insulin LISPRO 300 UNITS/3 ML VIAL SUBQ SCH ×2 (08:13→11:32)
[2022-02-08 11:22] VITALS: BP 162/93; PULSE 75; TEMP 98.1; O2SAT 98
== END 2022-02-08 14:00 | disposition home health service (06) | DRG 629 ==
LOC: EMEROOARM 13:23 → 4WAOSI 13:23
PROVIDERS: ADMIT Student in an Organized Health Care Education/Training Program; ATTEND Student in an Organized Health Care Education/Training Program

== ENCOUNTER 2022-03-06 10:38 | Inpatient (IN) ==
[2022-03-06] MEDS ORDERED: Iopamidol - 370 500 ML MLS IVP ONE ×2 (12:11→15:56)
[2022-03-06 12:38] LABS: Bilirubin,Urine Negative (Negative); Blood,Urine Negative (Negative); Clarity,Urine Clear (Clear); Color,Urine Dark-Yellow (Yellow); Glucose,Urine (UA) Normal (Normal); Hyaline Casts,Urine Few per lpf (None Seen); Ketones,Urine 10 mg/dL (Negative); Leukocyte Esterase,Urine Negative (Negative); Mucus,Urine Few per lpf (None-Few); Nitrite,Urine Negative (Negative); Protein,Urine 100 mg/dL (Neg-Trace); RBC,Urine 0-3 per hpf (0-3); Specific Gravity,Urine > 1.030 (1.010-1.025); Squamous Epithelial Cell,Urine Few per hpf (None-Few); Urobilinogen,Urine Normal (Normal); WBC,Urine 0-3 per hpf (0-3)
[2022-03-06 12:45] LABS: Basophils # 0.1 K/mcL (0.0-0.2); Basophils % 0.6 %; Eosinophils # 0.2 K/mcL (0.0-0.6); Eosinophils % 2.9 %; Hematocrit 38.7 % (37.5-50.1); Hemoglobin 11.6 g/dL (12.9-16.9); Lymphocytes # 1.9 K/mcL (0.6-4.6); Lymphocytes % 23.1 %; Mean Corpuscular Hemoglobin 23.6 pg (28.0-33.3); Mean Corpuscular Volume 78.8 fL (83.0-100.0); Mean Platelet Volume 8.3 fL (9.4-12.4); Monocytes # 0.6 K/mcL (0.0-1.3); Neutrophils # 5.5 K/mcL (1.6-8.9); Platelet Count 274 K/mcL (140-400); Red Blood Count 4.91 M/mcL (4.19-5.50); Red Cell Distribution Width 23.1 % (11.5-14.5); Segmented Neutrophils % 65.4 %; White Blood Count 8.4 K/mcL (4.3-11.1)
[2022-03-06 13:15] LABS: Anisocytosis 1+ (Not Present); Poikilocytosis 1+ (Not Present)
[2022-03-06 13:16] LABS: Hypochromasia Present (Not Present); Microcytosis Present (Not Present); Platelet Estimate Normal (Normal)
[2022-03-06 13:22] LABS: Influenza A PCR Negative (Negative); Influenza B PCR Negative (Negative); Resp. Syncytial Virus PCR Negative (Negative)
[2022-03-06 13:24] LABS: Alanine Aminotransferase 5 Units/L (7-52); Albumin 3.7 g/dL (3.5-5.7); Albumin/Globulin Ratio 1.1 (1.1-2.2); Alkaline Phosphatase 158 Units/L (34-104); Aspartate Amino Transferase 19 Units/L (13-39); Bilirubin,Indirect 0.2 mg/dL (0.0-1.0); Bilirubin,Total 0.2 mg/dL (0.3-1.0); C-Reactive Protein < 5 mg/L (Less than 10); Globulin 3.4 g/dL (2.4-3.5); Lipase 57 Units/L (11-82); Magnesium 1.9 mg/dL (1.6-2.6); Total Protein 7.1 g/dL (6.4-8.9)
[2022-03-06 13:35] LABS: SARS-CoV-2 by PCR (In House) Negative (Negative)
[2022-03-06] MEDS ORDERED: D5% in Water 1,000 ML IVC PRN (17:26)
[2022-03-06] MEDS ORDERED: Mag Hydrox/Al Hydrox/Simeth 30 ML UDC PO PRN (17:26)
[2022-03-06] MEDS ORDERED: Naloxone 0.4 MG/ML INJ IVP PRN (17:26)
[2022-03-06] MEDS ORDERED: Dextrose Gel 15 GM/37.5 ML TUBE PO PRN ×2 (17:26)
[2022-03-06] MEDS ORDERED: *HR* Dextrose 50 % in Water (Syg) 50 ML SYRINGE IVP PRN (17:26)
[2022-03-06] MEDS ORDERED: Ondansetron ODT 4 MG TAB.RAPDIS SL PRN (17:26)
[2022-03-06] MEDS ORDERED: MOM Conc 10 ML UD.LIQ PO PRN (17:26)
[2022-03-06] MEDS ORDERED: *HR* OxyCODONE/APAP 10/325 TABLET PO ONE (17:30)
[2022-03-06] MEDS ORDERED: Acetaminophen 325 MG TABLET PO ONE (19:42)
[2022-03-06] MEDS: Insulin LISPRO 300 UNITS/3 ML VIAL SUBQ SCH (21:45)
[2022-03-06] MEDS: *HR* Heparin 5,000 UNIT/ML VIAL SQ SCH (21:45)
[2022-03-06] MEDS: Nicotine 21 MG PATCH.TD24 TD SCH (22:59)
[2022-03-07] MEDS: *HR* OxyCODONE/APAP 10/325 TABLET PO PRN ×4 (01:18→23:35)
[2022-03-07 03:00] LABS: Hematocrit 36.9 % (37.5-50.1); Hemoglobin 10.9 g/dL (12.9-16.9); Mean Corpuscular HGB Conc 29.5 g/dL (31.6-35.5); Mean Corpuscular Hemoglobin 23.4 pg (28.0-33.3); Mean Corpuscular Volume 79.2 fL (83.0-100.0); Mean Platelet Volume 8.8 fL (9.4-12.4); Platelet Count 290 K/mcL (140-400); Red Blood Count 4.66 M/mcL (4.19-5.50); Red Cell Distribution Width 23.1 % (11.5-14.5); White Blood Count 7.4 K/mcL (4.3-11.1)
[2022-03-07 03:22] LABS: Calcium 9.2 mg/dL (8.6-10.3); Chol/HDL Ratio 4.7 (0-4.9); Magnesium 2.1 mg/dL (1.6-2.6); Potassium 4.1 mEq/L (3.5-5.1); Thyroid Stimulating Hormone 1.374 mcIU/mL (0.340-5.600)
[2022-03-07 03:31] LABS: Estimated Average Glucose 111 mg/dl; Hemoglobin A1C 5.5 %
[2022-03-07 03:33] LABS: Folate 14.7 ng/mL (3.0-16.0)
[2022-03-07] MEDS: *HR* Heparin 5,000 UNIT/ML VIAL SQ SCH (06:27)
[2022-03-07] MEDS ORDERED: Aspirin Enteric Coated 81 MG Tablet PO SCH (09:00)
[2022-03-07] MEDS: Insulin LISPRO 300 UNITS/3 ML VIAL SUBQ SCH ×4 (10:27→21:15)
[2022-03-07] MEDS: Loratadine 10 MG TABLET PO SCH ×2 (10:28→21:30)
[2022-03-07] MEDS: atenoloL 25 MG TABLET PO SCH (10:28)
[2022-03-07] MEDS: Nicotine 21 MG PATCH.TD24 TD SCH (10:29)
[2022-03-07] MEDS: CeFAZolin 2,000 MG/120 ML BAG IVPB SCH ×3 (10:30→23:35)
[2022-03-07] MEDS: Aspirin Enteric Coated 325 MG Tablet PO SCH (21:30)
[2022-03-08 06:57] VITALS: O2SAT 99
[2022-03-08] MEDS: *HR* OxyCODONE/APAP 10/325 TABLET PO PRN ×2 (06:58→13:42)
[2022-03-08] MEDS: Insulin LISPRO 300 UNITS/3 ML VIAL SUBQ SCH ×3 (09:14→16:44)
[2022-03-08 09:50] LABS: Basophils # 0.1 K/mcL (0.0-0.2); Basophils % 0.9 %; Eosinophils # 0.3 K/mcL (0.0-0.6); Eosinophils % 4.2 %; Hematocrit 37.9 % (37.5-50.1); Hemoglobin 11.1 g/dL (12.9-16.9); Immature Granulocytes % 1.3 % (0-4); Lymphocytes # 1.9 K/mcL (0.6-4.6); Lymphocytes % 25.6 %; Mean Corpuscular HGB Conc 29.3 g/dL (31.6-35.5); Mean Corpuscular Hemoglobin 23.5 pg (28.0-33.3); Mean Corpuscular Volume 80.3 fL (83.0-100.0); Mean Platelet Volume 8.9 fL (9.4-12.4); Monocytes # 0.7 K/mcL (0.0-1.3); Monocytes % 9.2 %; Neutrophils # 4.4 K/mcL (1.6-8.9); Platelet Count 289 K/mcL (140-400); Red Blood Count 4.72 M/mcL (4.19-5.50); Red Cell Distribution Width 22.7 % (11.5-14.5); Segmented Neutrophils % 58.8 %; White Blood Count 7.4 K/mcL (4.3-11.1)
[2022-03-08] MEDS: Nicotine 21 MG PATCH.TD24 TD SCH (09:58)
[2022-03-08] MEDS: Aspirin Enteric Coated 325 MG Tablet PO SCH (09:58)
[2022-03-08] MEDS: Loratadine 10 MG TABLET PO SCH (09:58)
[2022-03-08] MEDS: atenoloL 25 MG TABLET PO SCH (09:58)
[2022-03-08] MEDS: CeFAZolin 2,000 MG/120 ML BAG IVPB SCH ×2 (10:03→15:32)
[2022-03-08 10:11] LABS: Calcium 8.8 mg/dL (8.6-10.3); Magnesium 1.9 mg/dL (1.6-2.6); Potassium 4.4 mEq/L (3.5-5.1)
[2022-03-08 16:45] VITALS: BP 180/91; PULSE 76; TEMP 97.5
== END 2022-03-08 17:24 | disposition home health service (06) | DRG 69 ==
LOC: EMEROOARM 10:38 → 4WAOSI 10:38 → SUATTDRO 17:22 → 3ANU 17:27
PROVIDERS: ADMIT Internal Medicine; ATTEND Family Medicine